=== PATIENT | male | born 1960 | race Caucasian/White ===

== ENCOUNTER 2019-03-28 15:06 | Emergency (ER) | payer OTHER ==
[2019-03-28] MEDS ORDERED: ACETAMINOPHEN 500 MG TAB ONE (17:08)
[2019-03-28] MEDS ORDERED: IBUPROFEN 400 MG TAB ONE (17:08)
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
== END 2019-03-28 17:57 | disposition home or self-care (01) ==
LOC: ER 15:06
DX: S22.31XA Fracture of one rib, right side, initial encounter for closed fracture (principal); V47.0XXA Car driver injured in collision with fixed or stationary object in nontraffic accident, initial encounter
CPT/HCPCS: 99283